=== PATIENT | male | born 1960 | race Two or more races ===

== ENCOUNTER 2018-08-18 10:37 | Emergency (ER) | payer MEDICAID ==
[~2018-08-18] VITALS: Ht 175.3 cm; Wt 76.2 kg
[2018-08-18] MEDS ORDERED: LIDOCAINE 1% HCL (LOCAL ANESTH.) INJ 20ML MDV ID ONE (12:00)
[2018-08-18] MEDS ORDERED: InsuLIN REG 1unit/0.01ml Soln (100units/ml) IV ONE ×2 (12:15→14:30)
[2018-08-18] MEDS ORDERED: SODIUM CHLORIDE 0.9% 1,000 ML IV ONE (12:30)
[2018-08-18] MEDS ORDERED: TETANUS-DIPTH-ACEL PERTUSSIS 0.5ML SYRG IM ONE (13:00)
[2018-08-18] MEDS ORDERED: cefTRIAXone 1GM/50ML D5W 50 ML IV ONE (13:00)
[2018-08-18 13:28] LABS: Basophils # (auto) 0.1 uL; Lymphocytes # (auto) 1.4 uL; Neutrophils # (auto) 9.4 uL; Nucleated Red Blood Cells % 0.1 %
[2018-08-18 13:30] LABS: Basophils % (auto) 0.4 % (0.0-2.0); Eosinophils # (auto) 0 uL; Eosinophils % (auto) 0.4 % (0.0-7.0); Hematocrit 42.7 % (41.0-53.0); Lymphocytes % (auto) 11.8 % (10.0-50.0); Mean Corpuscular Hemoglobin 26.8 pg (28.0-32.0); Mean Corpuscular Hgb Conc. 32.8 g/dL (32.0-36.0); Mean Corpuscular Volume 81.7 fL (80.0-100.0); Monocytes # (auto) 0.8 uL; Monocytes % (auto) 7.2 % (0.0-12.0); Neutrophils % (auto) 80.2 % (37.0-80.0); Platelet Count (auto) 258 10^3/uL (140-450); Red Blood Cells 5.23 10^6/uL (4.5-5.90); Red Cell Distribution Width 14.2 % (11.8-14.3); White Blood Cell 11.7 10^3/uL (4.4-10.8)
[2018-08-18 13:33] LABS: Albumin 3.5 g/dL (3.4-5.0); Calcium 8.5 mg/dL (8.5-10.1); Potassium 4.9 mmol/L (3.5-5.1)
[2018-08-18 13:42] LABS: BUN/Creatinine Ratio 16.9; Bilirubin, Total 0.3 mg/dL (0.2-1.0); Total Protein 7.3 g/dL (6.4-8.2)
[2018-08-18] MEDS ORDERED: HYDROcodone-ACET 10/325MG TAB PO ONE (14:00)
[2018-08-18 14:13] VITALS: BP 139/87
== END 2018-08-18 15:30 | disposition home or self-care (01) ==
LOC: ER 10:37 → EDBD 10:37 → ER 15:30
DX: S01.511A Laceration without foreign body of lip, initial encounter (principal); R07.9 Chest pain, unspecified; E11.65 Type 2 diabetes mellitus with hyperglycemia; I10 Essential (primary) hypertension; V49.49XA Driver injured in collision with other motor vehicles in traffic accident, initial encounter; Y93.89 Activity, other specified; Y99.8 Other external cause status; Y92.89 Other specified places as the place of occurrence of the external cause
CPT/HCPCS: 12014; 36415; 70450; 70486; 71250; 80053; 82962; 85025; 90471; 90715; 93005; 96361; 96365; 96375; 96376; 99284; J0696; J1815; J2001; J7030